=== PATIENT | male | born 1935 | race African-American/Black ===

== ENCOUNTER 2017-09-10 04:12 | Inpatient (IN) | payer OTHER ==
[~2017-09-10] VITALS: Ht 172.7 cm; Wt 53.5 kg
[2017-09-10 04:13] VITALS: BP 174/91
[2017-09-10] MEDS ORDERED: BLOOD PRESSURE MED (04:21)
[2017-09-10 04:46] LABS: ABSOLUTE BASOPHILS 0.1 thou/uL (0.0-0.2); ABSOLUTE LYMPHOCYTES 1.7 thou/uL (0.8-5.3); ABSOLUTE MONOCYTES 0.8 thou/uL (0.0-1.2); ABSOLUTE NEUTROPHILS 5.3 thou/uL (1.6-8.1); EOSINOPHILS 0.1 %; HEMATOCRIT 39.9 % (42.0-52.0); HEMOGLOBIN 13.1 gm/dL (14.0-18.0); LYMPHOCYTES 21.6 %; MCH 30.7 pg (26.0-34.0); MCHC 32.8 g/dL (28.0-37.0); MCV 93.7 fL (80.0-100.0); MONOCYTES 9.8 %; MPV 8.2 fl. (7.2-11.1); NUCLEATED RBCS 0 /100WBC; PLATELET COUNT* 226 thou/uL (150-400); POLYS 67.5 %; RBC 4.25 mil/uL (4.50-6.00); RDW-CV 15.2 % (10.5-14.5); WBC 7.9 thou/uL (4.0-11.0)
[2017-09-10 04:54] LABS: ANION GAP 10 mmol/L (7-16); BUN 22 mg/dL (7-18); CALCIUM 9.2 mg/dL (8.5-10.1); CHLORIDE 110 mmol/L (98-107); CO2 27 mmol/L (21-32); CREATININE 1.7 mg/dL (0.6-1.3); GLUCOSE 114 mg/dL (70-99); POTASSIUM 3.9 mmol/L (3.5-5.1); SODIUM 147 mmol/L (136-145)
[2017-09-10 05:02] LABS: ALBUMIN 3.7 g/dL (3.4-5.0); ALKALINE PHOSPHATASE 75 U/L (46-116); NT-PRO BRAIN NAT PEPTIDE 422 pg/mL (<300); SGOT 29 U/L (15-37); SGPT 20 U/L (30-65); TOTAL BILIRUBIN 0.8 mg/dL (<0.1-1.0); TOTAL PROTEIN 7.7 g/dL (6.4-8.2); TROPONIN-I LEVEL <0.06 ng/mL (<0.06)
[2017-09-10 05:20] LABS: INR 1.1; PROTIME 11.1 Seconds (9.20-11.50)
[2017-09-10 05:30] LABS: URINE BILIRUBIN NEGATIVE (Negative); URINE BLOOD 1+ (Negative); URINE CLARITY CLEAR; URINE COLOR YELLOW; URINE GLUCOSE-RANDOM NEGATIVE (Negative); URINE KETONES NEGATIVE (Negative); URINE NITRITE-REFLEX NEGATIVE (Negative); URINE PROTEIN NEGATIVE (Negative); URINE UROBILINOGEN 0.2 E.U./dl (0.2-1.0)
[2017-09-10 05:31] LABS: URINE LEUKOCYTES-REFLEX 3+ (Negative)
[2017-09-10 05:36] LABS: CASTS None Seen /LPF (None Seen); CRYSTALS None Seen /LPF (None Seen); MUCUS 0-3 Light strn/LPF (None Seen); SQUAMOUS 0-3 Few /LPF (0-3); URINE RBC 3-10 Few /HPF (0-2); URINE WBC-REFLEX >25 Many /HPF (0-5)
[2017-09-10 09:30] VITALS: BP 168/72
[2017-09-10] MEDS ORDERED: LISINOPRIL10 MG PO (11:17)
--- NOTE | 2017-09-10 12:25 | EKG ---
[place] [address] ELECTROCARDIOGRAM REPORT Name: FIERROYISEL Room: [address] ADM IN ..#: [id number] Admission: 09/10/17 Attend Phys: Lazaro Rosado MD Discharge: Date of : 33 Report #: [id number] THIS REPORT FOR: //name// [facility] ED Test Date: 2017-09-10 Test Time: 05:06:45 Pat Name: YISEL FIERRO Department: Room: [facility] Gender: M Jordan Worker: RHONDA : 1935 Requested By: Rosie Blackman Order Number: [id number] MD: Ross Nielsen Measurements Intervals [place] Rate: 89 P: 73 [place]: 186 QRS: 67 QRSD: 85 T: 68 QT: 418 QTc: 509 Interpretive Statements Sinus rhythm Probable left atrial enlargement Prolonged QT interval Artifact in lead(s) I,V1,V2,V3,V4,V5,V6 and baseline wander in lead(s) V3,V6 No previous ECG available for comparison Electronically Signed On 09-10-2017 12:25:16 CDT by Ross Nielsen [email or web address] <ELECTRONICALLY SIGNED> By: Ross Nielsen MD, [facility] 09/10/17 1225 [id number] [id number] Ross Nielsen MD, [facility] /EPI
[2017-09-10 16:19] VITALS: BP 156/66
[2017-09-10 20:00] VITALS: BP 175/64
[2017-09-11 00:33] VITALS: BP 147/62
[2017-09-11 05:48] LABS: HEMATOCRIT 37.1 % (42.0-52.0); HEMOGLOBIN 12.6 gm/dL (14.0-18.0); MCH 31.4 pg (26.0-34.0); MCHC 33.9 g/dL (28.0-37.0); MCV 92.4 fL (80.0-100.0); MPV 8.9 fl. (7.2-11.1); RBC 4.01 mil/uL (4.50-6.00); RDW-CV 15.3 % (10.5-14.5); WBC 6.8 thou/uL (4.0-11.0)
[2017-09-11 06:18] LABS: ALBUMIN 3.1 g/dL (3.4-5.0); CALCIUM 8.7 mg/dL (8.5-10.1); CREATININE 1.5 mg/dL (0.6-1.3); MAGNESIUM 1.5 mg/dL (1.8-2.4); POTASSIUM 3.5 mmol/L (3.5-5.1); TOTAL BILIRUBIN 0.8 mg/dL (<0.1-1.0); TOTAL PROTEIN 6.3 g/dL (6.4-8.2)
[2017-09-11 08:00] VITALS: BP 148/75
[2017-09-11 11:47] VITALS: BP 158/68
[2017-09-11 16:32] VITALS: BP 188/87
[2017-09-11 23:51] VITALS: BP 186/102
[2017-09-12 03:57] VITALS: BP 166/94
[2017-09-12 05:29] LABS: HEMATOCRIT 37.5 % (42.0-52.0); HEMOGLOBIN 12.6 gm/dL (14.0-18.0); MCH 31.1 pg (26.0-34.0); MCHC 33.6 g/dL (28.0-37.0); MCV 92.5 fL (80.0-100.0); MPV 9.1 fl. (7.2-11.1); RBC 4.06 mil/uL (4.50-6.00); RDW-CV 14.9 % (10.5-14.5); WBC 7.7 thou/uL (4.0-11.0)
[2017-09-12 05:45] LABS: ALBUMIN 3.1 g/dL (3.4-5.0); CALCIUM 9.1 mg/dL (8.5-10.1); CREATININE 1.5 mg/dL (0.6-1.3); MAGNESIUM 1.7 mg/dL (1.8-2.4); POTASSIUM 3.7 mmol/L (3.5-5.1); TOTAL BILIRUBIN 0.8 mg/dL (<0.1-1.0); TOTAL PROTEIN 6.4 g/dL (6.4-8.2)
[2017-09-12 08:15] VITALS: BP 130/72
[2017-09-12 09:09] LABS: ANA INTERPRETATION Negative (Negative)
[2017-09-12 11:45] VITALS: BP 170/77
[2017-09-12] MEDS ORDERED: CIPRO500 MG PO (17:39)
[2017-09-12 17:40] VITALS: BP 129/64; BP 170/77
[2017-09-12 20:00] VITALS: BP 123/74
[2017-09-13 04:00] VITALS: BP 143/67
[2017-09-13 08:15] VITALS: BP 137/86
--- NOTE | 2017-09-13 09:38 | EKG ---
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1935 Requested By: Jeovany Mcclendon Order Number: [id number] MD: Ross Nielsen Measurements Intervals [place] Rate: 106 P: 72 [place]: 165 QRS: 72 QRSD: 78 T: 76 QT: 346 QTc: 460 Interpretive Statements Sinus tachycardia Borderline T abnormalities, anterior leads Compared to ECG 09/10/2017 05:06:45 T-wave abnormality now present Sinus rhythm no longer present Prolonged QT interval no longer present Electronically Signed On 09-13-2017 9:38:49 CDT by Ross Nielsen [email or web address] <ELECTRONICALLY SIGNED> By: Ross Nielsen MD, [facility] 09/13/17 0938 1919 18 Ross Nielsen MD, [facility] /EPI
[2017-09-13 12:00] VITALS: BP 120/73
[2017-09-13 14:31] VITALS: BP 170/77
[2017-09-13] MEDS ORDERED: TOPROL XL25 MG PO (14:58)
[2017-09-13 15:19] VITALS: BP 170/77
[2017-09-13 15:45] VITALS: BP 135/63
--- NOTE | 2017-09-20 19:10 | EEG ---
[address] [address] EEG STUDY REPORT Name: [facility] Room: [address] IN M.R.#: [id number] Admission: 09/10/17 Attend Phys: Lazaro Rosado MD Discharge: 09/13/17 Date of : 33 Report #: [id number] THIS REPORT FOR: //name// CC: FAM physician/PCP Lazaro Rosado DATE OF SERVICE: 09/10/2017 This patient is being evaluated for confusion. EEG was done by placing the electrodes by standard 10-20 system of electrode placement. Both referential and sequential montages were used for recording. Background activity in this patient's EEG is about 7-8 Hz and 30 microvolts. The patient went to sleep that is associated with bilaterally symmetrical sleep spindle and vertex sharp waves. Photic stimulation is unremarkable. Throughout the record, no active epileptiform activity was noticed. IMPRESSION: This patient's EEG is intermixed with significant amount of theta range slowing. That is a nonspecific abnormality, which can occur with encephalopathy, effect of psychotropic medication, dementia, etc. Clinical correlation is recommended. Thank you very much for this referral. <ELECTRONICALLY SIGNED> By: Montana Lopez MD 09/20/17 1910 1608 1626Montana Lopez MD /nt
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
== END 2017-09-13 16:00 | disposition home health service (06) | DRG 871 ==
LOC: M.ERS 04:12 → M.2W 05:31 → M.TBA-ER 05:31 → M.2W 09:49
PROVIDERS: Emergency Medicine; Internal Medicine; Psychiatry & Neurology Neuromuscular Medicine; ADMIT Internal Medicine
DX: A41.9 Sepsis, unspecified organism (principal); G93.41 Metabolic encephalopathy; N39.0 Urinary tract infection, site not specified; E87.0 Hyperosmolality and hypernatremia; I10 Essential (primary) hypertension; F17.210 Nicotine dependence, cigarettes, uncomplicated; E86.0 Dehydration; E86.1 Hypovolemia; E83.42 Hypomagnesemia; R90.82 White matter disease, unspecified; Z79.899 Other long term (current) drug therapy; F03.90 Unspecified dementia, unspecified severity, without behavioral disturbance, psychotic disturbance, mood disturbance, and anxiety; V89.2XXA Person injured in unspecified motor-vehicle accident, traffic, initial encounter; Y93.89 Activity, other specified; Y92.488 Other paved roadways as the place of occurrence of the external cause; Y99.8 Other external cause status